=== PATIENT | female | born 1950 | race Caucasian/White ===

== ENCOUNTER → 2020-01-25 | Outpatient (REF) | payer MEDICARE ==
[~2020-01-25] MED LIST: ACET500C PO; ALBU83IN NEB; CRES10TA32 OR; LIDO5DIS EXT; LISI10TA4 PO; METF500T4 PO; NEXI1CAP3 PO; ZETI10TA PO; [UNRECOGNIZED DRUG - OTHER] PO
== END ==
LOC: M LAB REF 13:36
PROVIDERS: ATTEND Internal Medicine Endocrinology, Diabetes & Metabolism
DX: E04.2 Nontoxic multinodular goiter (principal)

== ENCOUNTER 2022-12-25 07:40 | Day surgery (SDC) | payer MEDICARE ==
[~2022-12-25] VITALS: Ht 163.8 cm; Wt 86.4 kg
[~2022-12-25 07:40] MED LIST changes: +ALBU2.5V10 INH; +B-12100010 PO; +BSS IRRIG/VANCO(10MG)/TOBRA(5MG)/EPINEPH(1:1000-0.5CC)500ML BAG-ORONLY IR ONE; +CEFUROXIME 1MG/0.1ML INTRACAMERAL INJ As Ordered ONE; +CYCLOPENTOLATE 1% OPHTH SOLN 2ML BTL OD SCH; +ENAL10TA10 PO; +ESOM40CA35 PO; +FLUO1CRE2; +LEVO112T2 PO; +LIDOCAINE 1% SDV 5ML VIAL As Ordered ONE; +LIDOCAINE 3.5 % 1ML OPHTH TOPICAL GEL OU ONE; +METF10004 PO; +METRCRM; +NEXI40CA PO; +OFLOXACIN 0.3 % (OCUFLOX) OPTH SOL 5ML OD ONE; +PHENYLEPHRINE 10% OPHTH SOL 5ML OD PRN; +PHENYLEPHRINE 2.5% OPHTH SOL 2ML OD SCH; +PRAV40TA2 PO; +PROA1AER2 INH; +TROPICAMIDE 1% OPHTH SOLN 15ML OD SCH; +VITA100093 PO; +VITA500C24 PO
[2022-12-25] MEDS ORDERED: fentaNYL 100 MCG/2 ML INJECTION As Ordered ONE (09:06)
[2022-12-25] MEDS ORDERED: MIDAZOLAM INJ 2MG/2ML VIAL As Ordered ONE (09:06)
[2022-12-25 11:05] VITALS: BP 116/57; TEMP 97.2; O2SAT 96
== END 2022-12-25 11:05 | disposition home or self-care (01) ==
LOC: M SDC 07:40
PROVIDERS: ATTEND Ophthalmology
DX: H25.11 Age-related nuclear cataract, right eye (principal); E11.9 Type 2 diabetes mellitus without complications; E03.9 Hypothyroidism, unspecified; I10 Essential (primary) hypertension; E78.5 Hyperlipidemia, unspecified; M10.9 Gout, unspecified; Z79.51 Long term (current) use of inhaled steroids; Z92.21 Personal history of antineoplastic chemotherapy; Z85.850 Personal history of malignant neoplasm of thyroid; K21.9 Gastro-esophageal reflux disease without esophagitis; R21 Rash and other nonspecific skin eruption; J45.909 Unspecified asthma, uncomplicated; Z79.84 Long term (current) use of oral hypoglycemic drugs; Z79.899 Other long term (current) drug therapy; Z91.041 Radiographic dye allergy status; Z91.040 Latex allergy status; Z88.0 Allergy status to penicillin; Z88.8 Allergy status to other drugs, medicaments and biological substances; Z88.7 Allergy status to serum and vaccine
CPT/HCPCS: 66984; J0697; J2250; J3010; V2632